=== PATIENT | female | born 1960 | race Caucasian/White ===

== ENCOUNTER 2017-10-23 13:11 | Day surgery (SDC) | payer OTHER ==
[2017-10-23] MEDS ORDERED: FENTAnyl 50 MCG/ML VIAL (20:31)
[2017-10-23] MEDS ORDERED: MIDAZOLAM 1 MG/ML 2 ML INJ ×4 (20:31)
== END 2017-10-23 18:44 | disposition home or self-care (01) ==
LOC: GIL 13:11
DX: Z12.11 Encounter for screening for malignant neoplasm of colon (principal); D12.2 Benign neoplasm of ascending colon; K64.8 Other hemorrhoids; K20.9 Esophagitis, unspecified; K44.9 Diaphragmatic hernia without obstruction or gangrene; E11.9 Type 2 diabetes mellitus without complications; E78.5 Hyperlipidemia, unspecified
CPT/HCPCS: 43235; 82962; 88305